=== PATIENT | female | born 1995 | race Two or more races ===

== ENCOUNTER 2021-10-25 21:44 | Emergency (ER) | payer OTHER ==
[~2021-10-25] VITALS: Ht 149.9 cm; Wt 59.0 kg
--- NOTE | 2021-10-25 23:27 | NUR ---
Dr. Kimball at bedside for MSE.
[2021-10-25] MEDS ORDERED: CIPR7.5D LEFT EAR (23:39)
[2021-10-25] MEDS ORDERED: OXYC-128 PO (23:39)
[2021-10-25] MEDS ORDERED: OXYCODONE/APAP 5-325 MG TABLET ONE (23:47)
--- NOTE | 2021-10-25 23:51 | NUR ---
Patient discharged to home in stable condition. Written and verbal after care instructions given. Patient verbalizes understanding of instructions. Stressed follow up or return to ER for worsening s/s. Patient out of ER with steady gait, no acute signs of distress, VSS, all belongings taken, instructed not to drive, will be driven home by family member.
[2021-10-25 23:52] VITALS: BP 138/94
[2021-10-26] MEDS ORDERED: OXYCODONE/APAP 5-325 MG TABLET PO ONE
== END 2021-10-25 23:53 | disposition home or self-care (01) ==
LOC: ER 21:44
DX: H60.92 Unspecified otitis externa, left ear (principal); I10 Essential (primary) hypertension
CPT/HCPCS: A4663